=== PATIENT | male | born 2000 | race Caucasian/White ===

== ENCOUNTER 2021-04-18 16:07 | Outpatient (CLI) | payer BC, SELFPAY ==
--- NOTE | ~2021-04-18 | XR_ITS ---
EXAMINATION: XR knee RT 3V DATE: 04/18/2021 16:47 INDICATION: Right knee pain. TECHNIQUE: 3 views of right knee were obtained. COMPARISON: None. FINDINGS: Bone alignment is normal. No fracture. Joint spaces are well maintained. There is no knee j oint effusion. IMPRESSION: 1. Normal right knee. Reviewed, dictated and finalized at location A. IMPRESSION: 1. Normal right knee.
--- NOTE | ~2021-04-18 | XR_ITS ---
XR shoulder RT min 2V DATE: 04/18/2021 16:47 INDICATION: Right shoulder pain, limited motion TECHNIQUE: 4 views COMPARISON: 07/01/2019 right shoulder FINDINGS: There is resection of the lateral aspect of the right clavicle. No fracture or dislocation, periosteal reaction or bone destruction or abnormal soft tissue calcifica tion at the right shoulder. IMPRESSION: Resected lateral clavicle Reviewed, dictated and finalized at location A. IMPRESSION: Resected lateral clavicle
== END 2021-04-18 16:08 | disposition home or self-care (01) ==
PROVIDERS: PCP Internal Medicine; Visit Provider Internal Medicine
DX: M25.511 Pain in right shoulder (principal); M25.561 Pain in right knee
CPT/HCPCS: 73030; 73562

== ENCOUNTER → 2022-03-05 16:05 | Outpatient (CLI) | payer BC, SELFPAY ==
--- NOTE | ~2022-03-05 | MR_ITS ---
EXAMINATION: MR knee RT wo con DATE: 03/05/2022 16:47 INDICATION: Right knee pain TECHNIQUE: Magnetic resonance imaging (MRI) of the right knee was performed without intravenous contr ast. Sequences included coronal PD-weighted FSE, coronal PD-weighted FS FSE, sagittal T2-weighted FS E, sagittal PD-weighted FS FSE and axial PD weighted fat saturated FSE. COMPARISON: Right knee radiographs dated 04/18/2021 FINDINGS: Medial compartment: Medial meniscus is normal. There is a 12 x 9 x 12 mm ganglion cyst along the periphery of the anterio r horn of the medial meniscus without evident associated meniscal tear. Articular cartilage is normal . Lateral compartment: Complex lateral meniscal tear which extends obliquely from anterior inferiorly to posterior superiorl y across the body of the lateral meniscus. Mild chondral surface irregularity along the lateral tibia l plateau at the level of the anterior free edge of the posterior horn of the lateral meniscus. Patellofemoral compartment: Articular cartilage is normal. Ligaments and tendons: Anterior and posterior cruciate ligaments are normal. The medial collateral ligament and fibular carolyn ateral ligament complex are normal. The extensor mechanism is normal. The visualized medial and later al hamstring tendons as well as the iliotibial band are normal. Fluid: Physiologic amount of fluid in the joint space. No loose osteochondral bodies identified. Osseous/other: Normal marrow signal. No fracture or abnormal marrow replacing process. IMPRESSION: 1. Complex tear at the body of the lateral meniscus. Reviewed, dictated and finalized at location B.
== END ==
PROVIDERS: PCP Internal Medicine; Visit Provider Internal Medicine
DX: S83.271D Complex tear of lateral meniscus, current injury, right knee, subsequent encounter (principal); X58.XXXD Exposure to other specified factors, subsequent encounter
CPT/HCPCS: 73721

== ENCOUNTER 2023-07-13 16:35 | Outpatient (CLI) | payer BC, SELFPAY ==
--- NOTE | ~2023-07-13 | XR_ITS ---
EXAM: XR knee LT 3V DATE: 07/13/2023 16:53 HISTORY: left knee pain/NO TRAUMA . COMPARISON: None available. FINDINGS: Normal mineralization. No fracture or dislocation. No lytic or blastic lesion. Joint space s are maintained. No erosion or periosteal change. Soft tissues within normal limits. IMPRESSION: Normal left knee radiograph findings. Reviewed, dictated and finalized at location K. D ROUTE OPERATOR
== END 2023-07-13 16:36 | disposition home or self-care (01) ==
LOC: CHSIMG 16:39
PROVIDERS: PCP Internal Medicine; Visit Provider Internal Medicine
DX: Z00.00 Encounter for general adult medical examination without abnormal findings (principal); M25.562 Pain in left knee; G47.00 Insomnia, unspecified
CPT/HCPCS: 73562

== ENCOUNTER 2024-04-07 15:31 | Outpatient (CLI) | payer BC, OTHER, SELFPAY ==
--- NOTE | ~2024-04-07 | XR_ITS ---
3 VIEWS LUMBAR SPINE Ordering provider: Jeet Monge MD History: . back pain,ACUTE ON CHRONIC,NKI . Comparison: None. FINDINGS: VERTEBRAL BODIES: No visible fracture or subluxation. DISK SPACES: Normal. SOFT TISSUES: Normal. IMPRESSION: No acute osseous abnormality lumbar spine. Reviewed, dictated and finalized at location A.
--- NOTE | ~2024-04-07 | XR_ITS ---
3 VIEWS THORACIC SPINE Ordering provider: Jeet Monge MD History: . back pain,ACUTE ON CHRONIC,NKI . Comparison: None. FINDINGS: VERTEBRAL BODIES: Normal height and alignment. No visible fracture or subluxation. DISK SPACES: Multilevel degenerative disc disease in the midthoracic area. SOFT TISSUES: Normal. IMPRESSION: No acute osseous abnormality of the thoracic spine. Reviewed, dictated and finalized at location A.
--- NOTE | ~2024-04-07 | XR_ITS ---
[id number] Ordering provider: Jeet Monge MD History: . back pain,ACUTE ON CHRONIC,NKI . Comparison: None. FINDINGS: VERTEBRAL BODIES: Normal height and alignment. No visible fracture or subluxation. The dens is intact . DISK SPACES: Well maintained. PARASPINOUS SOFT TISSUES: No prevertebral soft tissue swelling. IMPRESSION: No acute osseous abnormality cervical spine. Reviewed, dictated and finalized at location A.
== END 2024-04-07 15:32 | disposition home or self-care (01) ==
PROVIDERS: PCP Internal Medicine; Visit Provider Internal Medicine
DX: M54.50 Low back pain, unspecified (principal)
CPT/HCPCS: 72040; 72070; 72100

== ENCOUNTER 2024-06-10 09:56 | Outpatient (CLI) | payer BC, OTHER, SELFPAY ==
--- NOTE | ~2024-06-10 | MR_ITS ---
MRI of the lumbar spine Clinical History: Back pain Technique: Axial T2-weighted images, and sagittal T1-weighted, T2-weighted, and T2 fat-sat images wer e acquired. Findings: There is no fracture or subluxation of the lumbar spine. Vertebral bodies maintain normal h eight and alignment. No bone marrow signal abnormality seen. At L1-L2, L2-L3, L3-L4, intervertebral discs maintain normal signal and position. No disc bulge or he rniation T levels. There are mild facet joint degenerative changes. No spinal canal stenosis or neura l foraminal narrowing at these levels. At L4-L5, there is mild diffuse disc bulge and mild facet arthropathy. No central canal stenosis or n eural foraminal narrowing. At L5-S1, there is disc bulge/protrusion centrally. There is minimal facet arthropathy. No central ca nal stenosis. There is mild bilateral neural foraminal narrowing. Paravertebral soft tissues are unremarkable. Impression: Mild degenerative spondylosis of the lower lumbar spine, as above. Reviewed, dictated and finalized at location . Impression: Mild degenerative spondylosis of the lower lumbar spine, as above.
--- NOTE | ~2024-06-10 | MR_ITS ---
MRI of the thoracic spine Clinical History: Back pain Technique: Axial T2-weighted and gradient images, and sagittal T1-weighted, T2-weighted, and STIR leland ges were acquired. Findings: There is no fracture or subluxation of the thoracic spine. Vertebral bodies maintain normal height and alignment. No bone marrow signal abnormality seen. No significant disc bulge or herniation seen at any thoracic level. No spinal canal stenosis or cord compression identified in the thoracic spine. Neural foramina are preserved throughout the thoracic s pine. No abnormal signal seen in the spinal cord. No epidural mass or collection. Paravertebral soft tissue s are unremarkable. Impression: Unremarkable exam. Reviewed, dictated and finalized at location M. Impression: Unremarkable exam.
== END 2024-06-10 09:57 | disposition home or self-care (01) ==
LOC: CHSIMG 09:57
PROVIDERS: PCP Internal Medicine; Visit Provider Internal Medicine
DX: M54.50 Low back pain, unspecified (principal)
CPT/HCPCS: 72146; 72148

== ENCOUNTER 2024-07-04 14:35 | Outpatient (CLI) | payer BC, OTHER, SELFPAY ==
--- NOTE | ~2024-07-04 | XR_ITS ---
XR sacroiliac joints min 3V Ordering provider: Jeet Monge MD History: . Sacroiliac dysfunction . Comparison: None. FINDINGS: BONES: No acute fracture or dislocation. JOINTS: The bilateral sacroiliac joint spaces appear well maintained. No bony fusion of the sacroilia c joints or bony erosions. SOFT TISSUES: Unremarkable. IMPRESSION: NO ACUTE OSSEOUS ABNORMALITY. NORMAL SACROILIAC JOINTS. Reviewed, dictated and finalized at location A. ATIONAL COMMUNICATION CHIEF
--- NOTE | 2024-07-07 14:22 | WPDHOLTEREM ---
Holter/Event Monitor Holter/Event Monitor Date of procedure: 07/04/24 Holter/Event Procedure: 48 Hr Holter Monitor Indications: Bradycardia Conclusion: 1. 48 hour holter monitor on 07/04/24. 2. Underlying rhythm is sinus rhythm. HR range 35-162 bpm; average HR 73 bpm. HR at 35 bpm was at 03:32. HR at 162 bpm was at 12:42 pm. 3. There are 1,780 premature supraventricular complexes, 406 supraventricular couplets, 98 supraventricular bigeminy, and 30 supraventricular trigeminy. No supraventricular tachycardia. 4. There are 7 premature ventricular complexes. No ventricular tachycardia. 5. No sinoatrial or atrioventricular blocks. No significant pauses greater than 2 seconds. 6. No symptoms available for correlation.
== END 2024-07-04 14:36 | disposition home or self-care (01) ==
LOC: CHSIMG 14:38
PROVIDERS: PCP Internal Medicine; Visit Provider Internal Medicine
DX: R00.1 Bradycardia, unspecified (principal); R55 Syncope and collapse; M53.3 Sacrococcygeal disorders, not elsewhere classified
CPT/HCPCS: 72202; 93225; 93226

== ENCOUNTER 2024-08-22 09:42 | Outpatient (CLI) | payer BC, OTHER, SELFPAY ==
--- NOTE | ~2024-08-22 | US_ITS ---
Limited Abdominal Sonogram: Real-time sonographic imaging of the right upper quadrant was performed. Clinical History: Elevated liver enzymes Findings: The liver appears normal with no evidence of mass lesion or bile duct dilatation. Main por yaniv vein demonstrates normal direction of flow. The gallbladder is well distended, and appears normal with no evidence of gallstone or wall thickening. The common bile duct measures 4 mm. The visualize d pancreas, aorta, and IVC are unremarkable. Impression: No significant abnormality seen. Reviewed, dictated and finalized at location M. HOLE DRILLER Impression: No significant abnormality seen.
== END 2024-08-22 09:43 | disposition home or self-care (01) ==
LOC: CHSIMG 09:44
PROVIDERS: PCP Internal Medicine; Visit Provider Internal Medicine
DX: R74.01 Elevation of levels of liver transaminase levels (principal)
CPT/HCPCS: 76705